=== PATIENT | male | born 1955 | race Caucasian/White ===

== ENCOUNTER 2021-04-22 15:30 | Inpatient (IN) ==
[2021-04-22] MEDS ORDERED: D5% in Water 1,000 ML IVC PRN (15:42)
[2021-04-22] MEDS ORDERED: *HR* Dextrose 50 % in Water (Syg) 50 ML SYRINGE IVP PRN (15:42)
[2021-04-22] MEDS ORDERED: Dextrose Gel 15 GM/37.5 ML TUBE PO PRN ×2 (15:42)
[2021-04-22] MEDS ORDERED: NON-FORMULARY MEDICATION 1 EACH EACH (Cefepime Hcl/Dextrose, Iso-Osm [Cefepime 2 Gm Inject IV SCH (15:45)
[2021-04-22] MEDS ORDERED: VANCOMYCIN IV SCH (15:45)
[2021-04-22] MEDS ORDERED: WATER FOR INJ IV SCH (15:45)
[2021-04-22] MEDS ORDERED: [UNRECOGNIZED DRUG - OTHER] IV SCH (15:45)
[2021-04-22] MEDS ORDERED: Insulin DETEMIR 100 UNIT/ML per UNIT SUBQ ONE (21:15)
[2021-04-22] MEDS: Gabapentin 400 MG CAPSULE PO SCH (22:27)
[2021-04-22] MEDS: *HR* HYDROcodone/Acet 7.5/325 mg TABLET PO PRN (22:27)
[2021-04-22] MEDS: Cefepime HCl 2,000 MG in 0.9 % Sodium Chloride Mini Bag 100 ML IVPB SCH (22:28)
[2021-04-22] MEDS: Insulin LISPRO 300 UNITS/3 ML VIAL SUBQ SCH ×2 (22:36→22:37)
[2021-04-22] MEDS: *HR* Heparin 5,000 UNIT/ML VIAL SQ SCH (22:37)
[2021-04-23] MEDS ORDERED: *HR* HYDROcodone/Acet 5/325 mg TABLET PO ONE (01:14)
[2021-04-23] MEDS: *HR* HYDROcodone/Acet 7.5/325 mg TABLET PO PRN ×5 (03:27→23:02)
[2021-04-23] MEDS ORDERED: Vancomycin 500 MG in 0.9 % Sodium Chloride Mini Bag 100 ML IVPB ONE (05:00)
[2021-04-23 07:09] LABS: Basophils # 0.1 K/mcL (0.0-0.2); Basophils % 1.1 %; Eosinophils # 0.3 K/mcL (0.0-0.6); Eosinophils % 4.4 %; Hematocrit 26.4 % (37.5-50.1); Hemoglobin 8.1 g/dL (12.9-16.9); Immature Granulocytes % 4.7 % (0-4); Lymphocytes # 0.9 K/mcL (0.6-4.6); Lymphocytes % 16.5 %; Mean Corpuscular HGB Conc 30.7 g/dL (31.6-35.5); Mean Corpuscular Hemoglobin 25.5 pg (28.0-33.3); Mean Platelet Volume 9.4 fL (9.4-12.4); Monocytes # 0.6 K/mcL (0.0-1.3); Monocytes % 10.7 %; Neutrophils # 3.6 K/mcL (1.6-8.9); Platelet Count 223 K/mcL (140-400); Red Blood Count 3.18 M/mcL (4.19-5.50); Red Cell Distribution Width 18.3 % (11.5-14.5); Segmented Neutrophils % 62.6 %; White Blood Count 5.7 K/mcL (4.3-11.1)
[2021-04-23] MEDS: *HR* Heparin 5,000 UNIT/ML VIAL SQ SCH ×2 (07:31→17:05)
[2021-04-23 08:40] LABS: BUN/Creatinine Ratio 9 (6-26); Blood Urea Nitrogen 12 mg/dL (8-23); Calcium 8.1 mg/dL (8.6-10.3); Carbon Dioxide 27 mEq/L (23-29); Chloride 104 mEq/L (98-107); Glucose 215 mg/dL (70-105); Osmolality,Calculated 290 (280-300); Potassium 4.1 mEq/L (3.5-5.1); Sodium 137 mEq/L (136-145); eGFR For African Americans > 60 (> 60); eGFR For Non-African Americans 53 (> 60)
[2021-04-23] MEDS: Gabapentin 400 MG CAPSULE PO SCH ×3 (09:24→23:02)
[2021-04-23] MEDS: Insulin LISPRO 300 UNITS/3 ML VIAL SUBQ SCH ×4 (09:24→22:57)
[2021-04-23] MEDS: Insulin DETEMIR 100 UNIT/ML per UNIT SUBQ SCH ×2 (09:25→23:03)
[2021-04-23] MEDS: Cefepime HCl 2,000 MG in 0.9 % Sodium Chloride Mini Bag 100 ML IVPB SCH ×2 (11:01→23:00)
[2021-04-23] MEDS: Vancomycin 1,250 MG/262.5 ML IV.SOLN IVPB SCH (17:17)
[2021-04-24] MEDS: *HR* Heparin 5,000 UNIT/ML VIAL SQ SCH ×2 (05:49→18:03)
[2021-04-24] MEDS: Vancomycin 1,250 MG/262.5 ML IV.SOLN IVPB SCH ×2 (05:52→18:09)
[2021-04-24] MEDS: *HR* HYDROcodone/Acet 7.5/325 mg TABLET PO PRN ×3 (06:03→19:39)
[2021-04-24] MEDS: Insulin LISPRO 300 UNITS/3 ML VIAL SUBQ SCH ×4 (08:17→22:00)
[2021-04-24] MEDS: Insulin DETEMIR 100 UNIT/ML per UNIT SUBQ SCH ×2 (10:12→22:02)
[2021-04-24] MEDS: Cefepime HCl 2,000 MG in 0.9 % Sodium Chloride Mini Bag 100 ML IVPB SCH ×2 (10:17→22:14)
[2021-04-24] MEDS: Gabapentin 400 MG CAPSULE PO SCH ×3 (10:17→19:38)
[2021-04-25] MEDS: *HR* HYDROcodone/Acet 7.5/325 mg TABLET PO PRN ×4 (02:36→20:22)
[2021-04-25 05:06] LABS: BUN/Creatinine Ratio 10 (6-26); Blood Urea Nitrogen 15 mg/dL (8-23); eGFR For African Americans 57 (> 60); eGFR For Non-African Americans 47 (> 60)
[2021-04-25] MEDS: Vancomycin 1,250 MG/262.5 ML IV.SOLN IVPB SCH (05:30)
[2021-04-25] MEDS: *HR* Heparin 5,000 UNIT/ML VIAL SQ SCH ×2 (05:31→18:32)
[2021-04-25] MEDS: Insulin LISPRO 300 UNITS/3 ML VIAL SUBQ SCH ×4 (08:18→20:22)
[2021-04-25] MEDS: Gabapentin 400 MG CAPSULE PO SCH ×3 (08:18→20:22)
[2021-04-25] MEDS: Insulin DETEMIR 100 UNIT/ML per UNIT SUBQ SCH ×2 (08:19→20:21)
[2021-04-25] MEDS: Cefepime HCl 2,000 MG in 0.9 % Sodium Chloride Mini Bag 100 ML IVPB SCH ×2 (10:02→22:43)
[2021-04-25] MEDS: 0.9 % Sodium Chloride 1,000 ML IVC SCH ×2 (12:40→22:44)
[2021-04-25 19:24] LABS: Basophils # 0.1 K/mcL (0.0-0.2); Basophils % 0.6 %; Eosinophils # 0.3 K/mcL (0.0-0.6); Eosinophils % 3.5 %; Hematocrit 28.9 % (37.5-50.1); Hemoglobin 8.8 g/dL (12.9-16.9); Immature Granulocytes % 1.6 % (0-4); Lymphocytes % 11.8 %; Mean Corpuscular HGB Conc 30.4 g/dL (31.6-35.5); Mean Corpuscular Hemoglobin 25.1 pg (28.0-33.3); Mean Corpuscular Volume 82.6 fL (83.0-100.0); Mean Platelet Volume 9.4 fL (9.4-12.4); Monocytes # 0.8 K/mcL (0.0-1.3); Monocytes % 9.2 %; Neutrophils # 6.2 K/mcL (1.6-8.9); Platelet Count 169 K/mcL (140-400); Red Cell Distribution Width 18.6 % (11.5-14.5); Segmented Neutrophils % 73.3 %; White Blood Count 8.5 K/mcL (4.3-11.1)
[2021-04-26 00:34] LABS: Hematocrit 25.7 % (37.5-50.1); Hemoglobin 7.6 g/dL (12.9-16.9)
[2021-04-26 07:20] LABS: Basophils % 0.3 %; Eosinophils # 0.2 K/mcL (0.0-0.6); Eosinophils % 1.6 %; Hematocrit 25.9 % (37.5-50.1); Hemoglobin 7.9 g/dL (12.9-16.9); Immature Granulocytes % 1.7 % (0-4); Lymphocytes # 0.6 K/mcL (0.6-4.6); Lymphocytes % 6.1 %; Mean Corpuscular HGB Conc 30.5 g/dL (31.6-35.5); Mean Corpuscular Hemoglobin 25.2 pg (28.0-33.3); Mean Corpuscular Volume 82.5 fL (83.0-100.0); Mean Platelet Volume 9.8 fL (9.4-12.4); Monocytes # 0.8 K/mcL (0.0-1.3); Monocytes % 8.1 %; Platelet Count 186 K/mcL (140-400); Red Blood Count 3.14 M/mcL (4.19-5.50); Red Cell Distribution Width 18.8 % (11.5-14.5); Segmented Neutrophils % 82.2 %; White Blood Count 9.7 K/mcL (4.3-11.1)
[2021-04-26] MEDS: Insulin LISPRO 300 UNITS/3 ML VIAL SUBQ SCH ×4 (07:24→21:20)
[2021-04-26 07:39] LABS: Alanine Aminotransferase 17 Units/L (7-52); Albumin 2.8 g/dL (3.5-5.7); Albumin/Globulin Ratio 0.9 (1.1-2.2); Alkaline Phosphatase 201 Units/L (34-104); Aspartate Amino Transferase 19 Units/L (13-39); BUN/Creatinine Ratio 10 (6-26); Bilirubin,Total 0.4 mg/dL (0.3-1.0); Blood Urea Nitrogen 14 mg/dL (8-23); Calcium 8.1 mg/dL (8.6-10.3); Carbon Dioxide 27 mEq/L (23-29); Chloride 104 mEq/L (98-107); Glucose 72 mg/dL (70-105); Osmolality,Calculated 283 (280-300); Potassium 3.8 mEq/L (3.5-5.1); Sodium 137 mEq/L (136-145); Total Protein 5.8 g/dL (6.4-8.9); eGFR For African Americans > 60 (> 60); eGFR For Non-African Americans 51 (> 60)
[2021-04-26] MEDS: Gabapentin 400 MG CAPSULE PO SCH ×3 (09:57→21:19)
[2021-04-26] MEDS: Insulin DETEMIR 100 UNIT/ML X5UNITS SUBQ SCH ×2 (09:58→21:20)
[2021-04-26] MEDS: Cefepime HCl 2,000 MG in 0.9 % Sodium Chloride Mini Bag 100 ML IVPB SCH ×2 (09:58→21:20)
[2021-04-26] MEDS ORDERED: Insulin DETEMIR 100 UNIT/ML per UNIT SUBQ SCH (10:00)
[2021-04-26] MEDS: *HR* HYDROcodone/Acet 7.5/325 mg TABLET PO PRN ×3 (10:25→21:19)
[2021-04-26] MEDS: Insulin DETEMIR 100 UNIT/ML per UNIT SUBQ SCH (10:27)
[2021-04-27] MEDS: *HR* HYDROcodone/Acet 7.5/325 mg TABLET PO PRN ×3 (06:37→22:54)
[2021-04-27] MEDS: *HR* Heparin 5,000 UNIT/ML VIAL SQ SCH ×2 (06:38→17:09)
[2021-04-27 07:49] LABS: Hematocrit 23.8 % (37.5-50.1); Hemoglobin 7.2 g/dL (12.9-16.9); Mean Corpuscular HGB Conc 30.3 g/dL (31.6-35.5); Mean Corpuscular Hemoglobin 25.3 pg (28.0-33.3); Mean Corpuscular Volume 83.5 fL (83.0-100.0); Mean Platelet Volume 8.9 fL (9.4-12.4); Platelet Count 131 K/mcL (140-400); Red Blood Count 2.85 M/mcL (4.19-5.50); Red Cell Distribution Width 18.6 % (11.5-14.5); White Blood Count 6.3 K/mcL (4.3-11.1)
[2021-04-27 08:02] LABS: Potassium 3.7 mEq/L (3.5-5.1)
[2021-04-27] MEDS: Insulin LISPRO 300 UNITS/3 ML VIAL SUBQ SCH ×4 (08:42→23:00)
[2021-04-27] MEDS: Cefepime HCl 2,000 MG in 0.9 % Sodium Chloride Mini Bag 100 ML IVPB SCH ×2 (08:59→23:00)
[2021-04-27] MEDS: Insulin DETEMIR 100 UNIT/ML X5UNITS SUBQ SCH ×2 (09:00→23:00)
[2021-04-27] MEDS: Gabapentin 400 MG CAPSULE PO SCH ×3 (09:00→22:55)
[2021-04-28 05:31] LABS: Basophils # 0.1 K/mcL (0.0-0.2); Eosinophils # 0.2 K/mcL (0.0-0.6); Eosinophils % 4.9 %; Hematocrit 23.1 % (37.5-50.1); Hemoglobin 6.9 g/dL (12.9-16.9); Immature Granulocytes % 1.8 % (0-4); Lymphocytes # 0.8 K/mcL (0.6-4.6); Lymphocytes % 16.1 %; Mean Corpuscular HGB Conc 29.9 g/dL (31.6-35.5); Mean Corpuscular Hemoglobin 24.7 pg (28.0-33.3); Mean Corpuscular Volume 82.8 fL (83.0-100.0); Monocytes # 0.4 K/mcL (0.0-1.3); Monocytes % 8.6 %; Neutrophils # 3.3 K/mcL (1.6-8.9); Platelet Count 130 K/mcL (140-400); Red Blood Count 2.79 M/mcL (4.19-5.50); Red Cell Distribution Width 18.6 % (11.5-14.5); Segmented Neutrophils % 67.6 %; White Blood Count 4.9 K/mcL (4.3-11.1)
[2021-04-28] MEDS: *HR* Heparin 5,000 UNIT/ML VIAL SQ SCH ×2 (05:46→16:32)
[2021-04-28 06:10] LABS: Albumin 2.7 g/dL (3.5-5.7); Albumin/Globulin Ratio 0.9 (1.1-2.2); Bilirubin,Total 0.3 mg/dL (0.3-1.0); Calcium 7.9 mg/dL (8.6-10.3); Globulin 3.1 g/dL (2.4-3.5); Potassium 3.8 mEq/L (3.5-5.1); Total Protein 5.8 g/dL (6.4-8.9)
[2021-04-28] MEDS: *HR* HYDROcodone/Acet 7.5/325 mg TABLET PO PRN ×2 (07:58→13:44)
[2021-04-28] MEDS: Gabapentin 400 MG CAPSULE PO SCH ×3 (07:58→20:09)
[2021-04-28] MEDS: Insulin LISPRO 300 UNITS/3 ML VIAL SUBQ SCH ×4 (07:58→20:10)
[2021-04-28] MEDS: Insulin DETEMIR 100 UNIT/ML X5UNITS SUBQ SCH ×2 (09:13→20:10)
[2021-04-28] MEDS: Cefepime HCl 2,000 MG in 0.9 % Sodium Chloride Mini Bag 100 ML IVPB SCH ×2 (09:13→22:45)
[2021-04-28] MEDS ORDERED: 0.9 % Sodium Chloride 250 ML IVC SCH (12:00)
[2021-04-28 17:48] LABS: Hematocrit 25.1 % (37.5-50.1); Hemoglobin 7.8 g/dL (12.9-16.9)
[2021-04-29] MEDS: *HR* Heparin 5,000 UNIT/ML VIAL SQ SCH ×2 (04:54→16:39)
[2021-04-29] MEDS: Insulin LISPRO 300 UNITS/3 ML VIAL SUBQ SCH ×4 (07:47→20:29)
[2021-04-29] MEDS: Cefepime HCl 2,000 MG in 0.9 % Sodium Chloride Mini Bag 100 ML IVPB SCH ×2 (09:54→20:28)
[2021-04-29] MEDS: Gabapentin 400 MG CAPSULE PO SCH ×3 (09:54→20:29)
[2021-04-29] MEDS: Insulin DETEMIR 100 UNIT/ML X5UNITS SUBQ SCH (09:56)
[2021-04-29 10:28] LABS: Basophils % 0.6 %; Eosinophils # 0.3 K/mcL (0.0-0.6); Eosinophils % 4.6 %; Hematocrit 26.4 % (37.5-50.1); Hemoglobin 8.2 g/dL (12.9-16.9); Immature Granulocytes % 0.8 % (0-4); Lymphocytes # 0.7 K/mcL (0.6-4.6); Lymphocytes % 10.4 %; Mean Corpuscular HGB Conc 31.1 g/dL (31.6-35.5); Mean Corpuscular Volume 83.8 fL (83.0-100.0); Mean Platelet Volume 10.1 fL (9.4-12.4); Monocytes # 0.4 K/mcL (0.0-1.3); Monocytes % 6.9 %; Neutrophils # 4.8 K/mcL (1.6-8.9); Platelet Count 148 K/mcL (140-400); Red Blood Count 3.15 M/mcL (4.19-5.50); Red Cell Distribution Width 18.2 % (11.5-14.5); Segmented Neutrophils % 76.7 %; White Blood Count 6.2 K/mcL (4.3-11.1)
[2021-04-29 10:44] LABS: Calcium 8.3 mg/dL (8.6-10.3); Potassium 3.8 mEq/L (3.5-5.1)
[2021-04-29] MEDS: *HR* HYDROcodone/Acet 7.5/325 mg TABLET PO PRN ×2 (12:47→16:49)
[2021-04-29] MEDS ORDERED: Insulin DETEMIR 100 UNIT/ML X5UNITS SUBQ SCH (21:00)
[2021-04-30] MEDS: *HR* HYDROcodone/Acet 7.5/325 mg TABLET PO PRN ×5 (01:27→21:05)
[2021-04-30] MEDS: *HR* Heparin 5,000 UNIT/ML VIAL SQ SCH ×3 (05:08→17:48)
[2021-04-30] MEDS ORDERED: Insulin DETEMIR 100 UNIT/ML X5UNITS SUBQ SCH (09:00)
[2021-04-30] MEDS: Insulin LISPRO 300 UNITS/3 ML VIAL SUBQ SCH ×2 (09:46→11:26)
[2021-04-30] MEDS: Gabapentin 400 MG CAPSULE PO SCH ×3 (09:47→21:04)
[2021-04-30] MEDS: Cefepime HCl 2,000 MG in 0.9 % Sodium Chloride Mini Bag 100 ML IVPB SCH ×2 (09:47→21:05)
[2021-04-30 15:20] LABS: BUN/Creatinine Ratio 11 (6-26); Blood Urea Nitrogen 17 mg/dL (8-23); eGFR For African Americans 55 (> 60); eGFR For Non-African Americans 45 (> 60)
[2021-04-30] MEDS: *HR* Metformin 500 MG TABLET PO SCH (21:05)
[2021-05-01] MEDS: *HR* HYDROcodone/Acet 7.5/325 mg TABLET PO PRN ×3 (04:22→13:04)
[2021-05-01] MEDS: *HR* Heparin 5,000 UNIT/ML VIAL SQ SCH ×3 (04:24→17:49)
[2021-05-01] MEDS: Gabapentin 400 MG CAPSULE PO SCH ×3 (08:30→20:25)
[2021-05-01] MEDS: *HR* Metformin 500 MG TABLET PO SCH ×2 (08:30→15:28)
[2021-05-01] MEDS: Cefepime HCl 2,000 MG in 0.9 % Sodium Chloride Mini Bag 100 ML IVPB SCH ×2 (09:58→22:56)
[2021-05-01 11:02] LABS: Basophils # 0.1 K/mcL (0.0-0.2); Basophils % 0.9 %; Eosinophils # 0.3 K/mcL (0.0-0.6); Eosinophils % 5.8 %; Hematocrit 26.9 % (37.5-50.1); Hemoglobin 8.3 g/dL (12.9-16.9); Immature Granulocytes % 0.7 % (0-4); Lymphocytes # 0.8 K/mcL (0.6-4.6); Lymphocytes % 13.7 %; Mean Corpuscular HGB Conc 30.9 g/dL (31.6-35.5); Mean Corpuscular Hemoglobin 25.8 pg (28.0-33.3); Mean Corpuscular Volume 83.5 fL (83.0-100.0); Mean Platelet Volume 9.2 fL (9.4-12.4); Monocytes # 0.4 K/mcL (0.0-1.3); Monocytes % 7.7 %; Neutrophils # 3.9 K/mcL (1.6-8.9); Platelet Count 128 K/mcL (140-400); Red Blood Count 3.22 M/mcL (4.19-5.50); Red Cell Distribution Width 18.4 % (11.5-14.5); Segmented Neutrophils % 71.2 %; White Blood Count 5.5 K/mcL (4.3-11.1)
[2021-05-01 11:33] LABS: Calcium 8.3 mg/dL (8.6-10.3); Potassium 3.9 mEq/L (3.5-5.1)
[2021-05-01] MEDS: *HR* OxyCODONE/APAP 10/325 TABLET PO PRN (20:25)
[2021-05-02] MEDS: *HR* OxyCODONE/APAP 10/325 TABLET PO PRN ×2 (06:21→15:41)
[2021-05-02] MEDS: *HR* Metformin 500 MG TABLET PO SCH ×2 (09:00→17:31)
[2021-05-02] MEDS: Gabapentin 400 MG CAPSULE PO SCH ×3 (09:00→20:57)
[2021-05-02] MEDS: Cefepime HCl 2,000 MG in 0.9 % Sodium Chloride Mini Bag 100 ML IVPB SCH ×2 (11:37→22:14)
[2021-05-03] MEDS: *HR* OxyCODONE/APAP 10/325 TABLET PO PRN ×2 (04:27→21:01)
[2021-05-03] MEDS: Gabapentin 400 MG CAPSULE PO SCH ×3 (08:15→21:00)
[2021-05-03] MEDS: *HR* Metformin 500 MG TABLET PO SCH ×2 (08:16→17:10)
[2021-05-03] MEDS: Cefepime HCl 2,000 MG in 0.9 % Sodium Chloride Mini Bag 100 ML IVPB SCH ×2 (09:33→21:55)
[2021-05-04] MEDS: *HR* Metformin 500 MG TABLET PO SCH ×2 (08:15→16:41)
[2021-05-04] MEDS: Gabapentin 400 MG CAPSULE PO SCH ×3 (08:15→22:03)
[2021-05-04] MEDS: *HR* OxyCODONE/APAP 10/325 TABLET PO PRN ×3 (08:15→22:03)
[2021-05-04] MEDS: Cefepime HCl 2,000 MG in 0.9 % Sodium Chloride Mini Bag 100 ML IVPB SCH ×2 (11:22→22:05)
[2021-05-05] MEDS: *HR* OxyCODONE/APAP 10/325 TABLET PO PRN ×3 (06:34→21:52)
[2021-05-05 08:16] LABS: Basophils % 0.8 %; Eosinophils # 0.4 K/mcL (0.0-0.6); Eosinophils % 8.8 %; Hemoglobin 8.1 g/dL (12.9-16.9); Immature Granulocytes % 0.4 % (0-4); Lymphocytes # 0.7 K/mcL (0.6-4.6); Lymphocytes % 14.7 %; Mean Corpuscular Hemoglobin 25.2 pg (28.0-33.3); Mean Corpuscular Volume 83.9 fL (83.0-100.0); Mean Platelet Volume 9.7 fL (9.4-12.4); Monocytes # 0.5 K/mcL (0.0-1.3); Monocytes % 9.8 %; Neutrophils # 3.2 K/mcL (1.6-8.9); Platelet Count 102 K/mcL (140-400); Red Blood Count 3.22 M/mcL (4.19-5.50); Red Cell Distribution Width 17.8 % (11.5-14.5); Segmented Neutrophils % 65.5 %; White Blood Count 4.9 K/mcL (4.3-11.1)
[2021-05-05] MEDS: *HR* Metformin 500 MG TABLET PO SCH ×2 (08:24→18:40)
[2021-05-05] MEDS: Gabapentin 400 MG CAPSULE PO SCH ×3 (08:24→21:53)
[2021-05-05] MEDS: Cefepime HCl 2,000 MG in 0.9 % Sodium Chloride Mini Bag 100 ML IVPB SCH ×2 (08:26→21:55)
[2021-05-05 08:27] LABS: BUN/Creatinine Ratio 12 (6-26); Blood Urea Nitrogen 21 mg/dL (8-23); eGFR For African Americans 47 (> 60); eGFR For Non-African Americans 38 (> 60)
[2021-05-05 13:15] LABS: C-Reactive Protein 18 mg/L (Less than 10)
[2021-05-05] MEDS: Ringers Solution, Lactated 1,000 ML IVC SCH (14:20)
[2021-05-06] MEDS: Ringers Solution, Lactated 1,000 ML IVC SCH (04:22)
[2021-05-06 05:04] LABS: Calcium 8.2 mg/dL (8.6-10.3); Potassium 3.8 mEq/L (3.5-5.1)
[2021-05-06] MEDS: Cefepime HCl 2,000 MG in 0.9 % Sodium Chloride Mini Bag 100 ML IVPB SCH ×2 (11:31→23:13)
[2021-05-06] MEDS: Gabapentin 400 MG CAPSULE PO SCH ×3 (11:31→21:20)
[2021-05-06] MEDS: *HR* Metformin 500 MG TABLET PO SCH ×2 (11:31→17:05)
[2021-05-06] MEDS: *HR* OxyCODONE/APAP 10/325 TABLET PO PRN ×2 (11:33→17:25)
[2021-05-07 08:55] LABS: Blood Urea Nitrogen 26 mg/dL (8-23)
[2021-05-07 08:59] VITALS: O2SAT 99
[2021-05-07] MEDS: Cefepime HCl 2,000 MG in 0.9 % Sodium Chloride Mini Bag 100 ML IVPB SCH ×2 (09:07→21:39)
[2021-05-07] MEDS: *HR* OxyCODONE/APAP 10/325 TABLET PO PRN ×2 (09:12→21:40)
[2021-05-07] MEDS: Gabapentin 400 MG CAPSULE PO SCH ×3 (09:12→21:40)
[2021-05-07] MEDS: *HR* Metformin 500 MG TABLET PO SCH (09:12)
[2021-05-07] MEDS: 0.9 % Sodium Chloride 1,000 ML IVC SCH (12:22)
[2021-05-07] MEDS ORDERED: DAPTOmycin 500 MG in 0.9 % Sodium Chloride 100 ML IVPB SCH (13:00)
[2021-05-07] MEDS ORDERED: DAPTOmycin 750 MG in 0.9 % Sodium Chloride 100 ML IVPB SCH (13:00)
[2021-05-08] MEDS: 0.9 % Sodium Chloride 1,000 ML IVC SCH (01:43)
[2021-05-08 09:27] VITALS: BP 104/69; PULSE 65; RESP 18; TEMP 97.4
[2021-05-08] MEDS: Gabapentin 400 MG CAPSULE PO SCH (09:57)
[2021-05-08] MEDS: Cefepime HCl 2,000 MG in 0.9 % Sodium Chloride Mini Bag 100 ML IVPB SCH (09:57)
[2021-05-08 10:13] LABS: Basophils % 0.8 %; Eosinophils # 0.6 K/mcL (0.0-0.6); Eosinophils % 11.4 %; Hematocrit 26.9 % (37.5-50.1); Hemoglobin 8.3 g/dL (12.9-16.9); Immature Granulocytes % 0.4 % (0-4); Lymphocytes # 0.9 K/mcL (0.6-4.6); Lymphocytes % 18.9 %; Mean Corpuscular HGB Conc 30.9 g/dL (31.6-35.5); Mean Corpuscular Hemoglobin 25.4 pg (28.0-33.3); Mean Corpuscular Volume 82.3 fL (83.0-100.0); Mean Platelet Volume 10.7 fL (9.4-12.4); Monocytes # 0.5 K/mcL (0.0-1.3); Platelet Count 96 K/mcL (140-400); Red Blood Count 3.27 M/mcL (4.19-5.50); Red Cell Distribution Width 17.4 % (11.5-14.5); Segmented Neutrophils % 59.5 %
[2021-05-08 10:36] LABS: Bilirubin,Total 0.6 mg/dL (0.3-1.0); Calcium 8.4 mg/dL (8.6-10.3); Globulin 2.9 g/dL (2.4-3.5); Potassium 4.1 mEq/L (3.5-5.1); Total Protein 5.9 g/dL (6.4-8.9)
[2021-05-08] MEDS ORDERED: 0.9 % Sodium Chloride 1,000 ML IVC SCH (12:26)
[2021-05-08] MEDS ORDERED: Gabapentin 300 MG CAPSULE PO SCH (21:00)
[2021-05-09] MEDS ORDERED: cefTRIAXone 2,000 MG in 0.9 % Sodium Chloride Mini Bag 100 ML IVPB SCH (09:00)
[2021-05-09] MEDS ORDERED: Cefepime HCl 2,000 MG in 0.9 % Sodium Chloride Mini Bag 100 ML IVPB SCH (10:00)
== END 2021-05-08 18:30 | disposition short-term general hospital (02) | DRG 540 ==
LOC: INPPIK 20:42
PROVIDERS: ADMIT Internal Medicine; ATTEND Internal Medicine